=== PATIENT | male | born 1945 | race Caucasian/White ===

== ENCOUNTER → 2018-01-28 | Outpatient (CLI) | payer MEDICARE, BC ==
[~2018-01-28] MED LIST: CIPRO 500MG TA500 MG PO; COUMADIN 5MG5 MG/TAB PO; GOUT MEDICATION; HYZAAR 50-12.1 UDTAB PO; LOVENOX120 MG/0.8 SC; NORCO 325 MG-51 TAB PO; PRILOSEC 20MG20 MG PO; ZOCOR 20MG20 MG PO
== END ==
LOC: COL.RAD 13:47
DX: N28.1 Cyst of kidney, acquired (principal); N18.3 Chronic kidney disease, stage 3 (moderate)

== ENCOUNTER → 2019-01-28 | Outpatient (CLI) | payer MEDICARE, BC | LOC: COL.RAD 12:08 | DX: N28.1 Cyst of kidney, acquired (principal); I70.0 Atherosclerosis of aorta; M79.604 Pain in right leg; M79.605 Pain in left leg; Z95.828 Presence of other vascular implants and grafts | CPT/HCPCS: Q9967 ==

== ENCOUNTER → 2019-07-11 | Outpatient (CLI) | payer MEDICARE, BC | LOC: COL.VAS 07:45 | DX: M79.604 Pain in right leg (principal); Z86.718 Personal history of other venous thrombosis and embolism ==

== ENCOUNTER → 2019-12-05 | Outpatient (CLI) | payer MEDICARE, BC | LOC: COL.RAD 09:17 | DX: M48.061 Spinal stenosis, lumbar region without neurogenic claudication (principal) ==

== ENCOUNTER → 2020-03-04 | Outpatient (CLI) | payer MEDICARE, BC ==
[2020-03-04 12:15] LABS: INR 1.2 (0.8-3.0); PROTHROMBIN TIME 13.7 SECONDS (9.7-12.8)
== END ==
LOC: ZCOL.LAB 11:53
PROVIDERS: Family Medicine
DX: Z79.01 Long term (current) use of anticoagulants (principal)

== ENCOUNTER 2021-11-04 21:28 | Emergency (ER) | payer MEDICARE, BC ==
[~2021-11-04] VITALS: Ht 188 cm; Wt 131.8 kg
[2021-11-04 21:34] VITALS: TEMP 97.2
[2021-11-04] MEDS ORDERED: CEPHALEXIN500 M1 PO (23:18)
[2021-11-04 23:28] VITALS: BP 144/85; PULSE 78
== END 2021-11-04 23:38 | disposition home or self-care (01) ==
LOC: COL.ER 21:28
DX: S66.222A Laceration of extensor muscle, fascia and tendon of left thumb at wrist and hand level, initial encounter (principal); Z86.718 Personal history of other venous thrombosis and embolism; Z23 Encounter for immunization; Z79.01 Long term (current) use of anticoagulants; W25.XXXA Contact with sharp glass, initial encounter; Y93.01 Activity, walking, marching and hiking

== ENCOUNTER → 2022-02-15 | Outpatient (CLI) | payer MEDICARE, BC ==
[~2022-02-15] MED LIST changes: +CEPHALEXIN500 M1 PO
== END ==
LOC: COL.VAS 07:53
DX: Z86.718 Personal history of other venous thrombosis and embolism (principal)